=== PATIENT | female | born 1940 | race Caucasian/White ===

== ENCOUNTER 2022-09-27 15:39 | Inpatient (IN) | payer OTHER ==
[2022-09-27] MEDS ORDERED: Sodium Chloride 0.9% 10 ML Syringe FLUSH PRN (16:04)
[2022-09-27] MEDS ORDERED: Ketorolac 15 MG/ML SDV IVPUSH ONE (16:05)
[2022-09-27] MEDS ORDERED: Sodium Chloride 0.9% 1,000 ML IV SCH (16:15)
[2022-09-27 16:41] LABS: CORONAVIRUS COVID-19 NAA NEGATIVE (NEGATIVE)
[2022-09-27] MEDS ORDERED: cefTRIAXone 2 GM in Sodium Chloride 0.9% 100 ML IV ONE (18:46)
[2022-09-27] MEDS ORDERED: HYDROmorphone 0.5 MG/0.5 ML Syringe IVPUSH ONE (18:58)
[2022-09-27] MEDS ORDERED: ACETAMINOPHEN PO SCH (21:08)
[2022-09-27] MEDS ORDERED: OXYCODONE HCL PO SCH (21:08)
[2022-09-27] MEDS ORDERED: oxyCODONE 5 MG Tab PO ONE (21:39)
[2022-09-27] MEDS ORDERED: Acetaminophen/oxyCODONE 325-5 MG Tab PO ONE (21:40)
[2022-09-27] MEDS: Sodium Chloride 0.9% 1,000 ML IV SCH (22:46)
[2022-09-28] MEDS: Acetaminophen 325 MG Tab PO PRN ×2 (04:07→23:58)
[2022-09-28] MEDS ORDERED: Docusate Sodium 100 MG Cap PO PRN (06:49)
[2022-09-28] MEDS ORDERED: traMADol 50 MG Tab ONE (08:29)
[2022-09-28] MEDS: Oxybutynin 5 MG Tab.ER PO SCH (09:12)
[2022-09-28] MEDS: Hydroxychloroquine 200 MG Tab PO SCH ×2 (09:13→20:35)
[2022-09-28] MEDS: DULoxetine 20 MG Cap PO SCH (09:14)
[2022-09-28] MEDS: Acetaminophen/oxyCODONE 325-5 MG Tab PO SCH ×3 (09:14→20:32)
[2022-09-28] MEDS: Cholecalciferol (Vitamin D3) 25 MCG Tab PO SCH (09:15)
[2022-09-28] MEDS: oxyCODONE 5 MG Tab PO SCH ×3 (09:16→20:31)
[2022-09-28] MEDS: Pantoprazole 40 MG Tab.CR PO SCH (09:16)
[2022-09-28] MEDS: Sertraline 50 MG Tab PO SCH (09:17)
[2022-09-28] MEDS: Lisinopril 20 MG Tab PO SCH (09:17)
[2022-09-28] MEDS: Carvedilol 6.25 MG Tab PO SCH ×2 (09:18→20:33)
[2022-09-28] MEDS: Sodium Chloride 0.9% 1,000 ML IV SCH ×2 (09:50→23:58)
[2022-09-28] MEDS ORDERED: ULTRAM PO SCH (13:00)
[2022-09-28] MEDS: Enoxaparin 30 MG/0.3 ML Syringe SUBCUT SCH (13:28)
[2022-09-28] MEDS: TRAMADOL 200 MG PO SCH (13:28)
[2022-09-28] MEDS: cefTRIAXone 2 GM in Sodium Chloride 0.9% 100 ML IV SCH (17:52)
[2022-09-28] MEDS: Tamsulosin 0.4 MG Cap.ER PO SCH (20:34)
[2022-09-28] MEDS: Aspirin 81 MG Tab.EC PO SCH (20:34)
[2022-09-28] MEDS: lamoTRIgine 100 MG Tab PO SCH (20:34)
[2022-09-29] MEDS: Levothyroxine 100 MCG Tab PO SCH (06:04)
[2022-09-29] MEDS: Pantoprazole 40 MG Tab.CR PO SCH (06:05)
[2022-09-29] MEDS: Carvedilol 6.25 MG Tab PO SCH ×2 (08:17→20:28)
[2022-09-29] MEDS: Cholecalciferol (Vitamin D3) 25 MCG Tab PO SCH (08:17)
[2022-09-29] MEDS: Oxybutynin 5 MG Tab.ER PO SCH (08:17)
[2022-09-29] MEDS: Hydroxychloroquine 200 MG Tab PO SCH ×2 (08:17→20:26)
[2022-09-29] MEDS: Acetaminophen/oxyCODONE 325-5 MG Tab PO SCH ×3 (08:18→20:27)
[2022-09-29] MEDS: Sertraline 50 MG Tab PO SCH (08:18)
[2022-09-29] MEDS: DULoxetine 20 MG Cap PO SCH (08:18)
[2022-09-29] MEDS: Lisinopril 20 MG Tab PO SCH (08:18)
[2022-09-29] MEDS: oxyCODONE 5 MG Tab PO SCH ×3 (08:19→20:26)
[2022-09-29] MEDS ORDERED: Magnesium Sulfate/Water 2 GM in Premix Bag 1 BAG IV ONE (10:25)
[2022-09-29] MEDS: Potassium Chloride 20 MEQ Tab.ER PO SCH ×2 (10:37→20:26)
[2022-09-29] MEDS: TRAMADOL 200 MG PO SCH (12:09)
[2022-09-29] MEDS: Enoxaparin 30 MG/0.3 ML Syringe SUBCUT SCH (12:09)
[2022-09-29] MEDS: cefTRIAXone 2 GM in Sodium Chloride 0.9% 100 ML IV SCH (17:21)
[2022-09-29] MEDS: lamoTRIgine 100 MG Tab PO SCH (20:26)
[2022-09-29] MEDS: Aspirin 81 MG Tab.EC PO SCH (20:27)
[2022-09-29] MEDS: Tamsulosin 0.4 MG Cap.ER PO SCH (20:27)
[2022-09-30] MEDS: Levothyroxine 100 MCG Tab PO SCH (05:18)
[2022-09-30] MEDS: Pantoprazole 40 MG Tab.CR PO SCH (05:18)
[2022-09-30] MEDS ORDERED: Magnesium Sulfate/Water 4 GM in Premix Bag 1 BAG IV ONE (07:48)
[2022-09-30] MEDS: DULoxetine 20 MG Cap PO SCH (09:12)
[2022-09-30] MEDS: Cholecalciferol (Vitamin D3) 25 MCG Tab PO SCH (09:12)
[2022-09-30] MEDS: Hydroxychloroquine 200 MG Tab PO SCH (09:13)
[2022-09-30] MEDS: oxyCODONE 5 MG Tab PO SCH (09:13)
[2022-09-30] MEDS: Lisinopril 20 MG Tab PO SCH (09:13)
[2022-09-30] MEDS: Oxybutynin 5 MG Tab.ER PO SCH (09:13)
[2022-09-30] MEDS: Sertraline 50 MG Tab PO SCH (09:13)
[2022-09-30] MEDS: Carvedilol 6.25 MG Tab PO SCH (09:14)
[2022-09-30] MEDS: Acetaminophen/oxyCODONE 325-5 MG Tab PO SCH (09:14)
[2022-09-30] MEDS ORDERED: Gabapentin 100 MG Cap PO ONE (10:00)
[2022-09-30] MEDS: Enoxaparin 30 MG/0.3 ML Syringe SUBCUT SCH (12:49)
[2022-09-30] MEDS: TRAMADOL 200 MG PO SCH (13:31)
[2022-09-30] MEDS ORDERED: Gabapentin 100 MG Cap PO SCH (21:00)
== END 2022-09-30 16:20 | disposition home or self-care (01) | DRG 689 ==
LOC: JD.ED 15:39 → JD.MS 19:33
PROVIDERS: ADMIT Internal Medicine; ATTEND Pediatrics
DX: N30.01 Acute cystitis with hematuria (principal); J18.9 Pneumonia, unspecified organism; N17.9 Acute kidney failure, unspecified; E87.6 Hypokalemia; E83.42 Hypomagnesemia; E86.0 Dehydration; R21 Rash and other nonspecific skin eruption; I10 Essential (primary) hypertension; G89.29 Other chronic pain; M54.9 Dorsalgia, unspecified; Z96.659 Presence of unspecified artificial knee joint; Z20.822 Contact with and (suspected) exposure to COVID-19; M06.9 Rheumatoid arthritis, unspecified; E03.9 Hypothyroidism, unspecified; B96.20 Unspecified Escherichia coli [E. coli] as the cause of diseases classified elsewhere; Z79.82 Long term (current) use of aspirin; Z79.899 Other long term (current) drug therapy; Z86.73 Personal history of transient ischemic attack (TIA), and cerebral infarction without residual deficits; Z90.49 Acquired absence of other specified parts of digestive tract; Z87.01 Personal history of pneumonia (recurrent); Z79.890 Hormone replacement therapy; Z98.49 Cataract extraction status, unspecified eye; Z90.710 Acquired absence of both cervix and uterus; Z98.1 Arthrodesis status
CPT/HCPCS: 0241U; 36415; 71045; 71045-26; 80048; 80053; 81001; 83605; 83735; 85025; 86140; 87040; 87086; 87088; 87186; 96361; 96365; 96375; 97116-GP; 97162-GP; 97166-GO; 97530-GO; 99285-25; A9270-GY; J0696; J1170; J1650; J1885; J3475; J7030

== ENCOUNTER 2024-01-27 14:38 | Inpatient (IN) | payer MEDICARE ==
[2024-01-27] MEDS ORDERED: Acetaminophen 325 MG Tab PO PRN (15:16)
[2024-01-27] MEDS ORDERED: Ondansetron 4 MG Tab.DIS PO PRN (15:16)
[2024-01-27] MEDS: Sodium Chloride 0.9% 1,000 ML IV SCH (15:20)
[2024-01-27 16:39] LABS: CORONAVIRUS COVID-19 NAA NEGATIVE (NEGATIVE); INFLUENZA A NAA NEGATIVE (NEGATIVE); RESPIRATORY SYNCYTIAL VIR NAA NEGATIVE (NEGATIVE)
[2024-01-27] MEDS: cefTRIAXone 2 GM in Sodium Chloride 0.9% 100 ML IV SCH (16:42)
[2024-01-27] MEDS: oxyCODONE 5 MG Tab PO PRN (17:12)
[2024-01-27 17:19] LABS: LACTIC ACID 2.4 mmol/L (0.4-2.0)
[2024-01-27] MEDS: Morphine 2 MG/ML SYRINGE IVPUSH ONE (18:16)
[2024-01-27] MEDS: Morphine 2 MG/ML SYRINGE ONE (18:16)
[2024-01-27] MEDS: lamoTRIgine 100 MG Tab PO SCH (21:12)
[2024-01-27] MEDS: Hydroxychloroquine 200 MG Tab PO SCH (21:13)
[2024-01-27] MEDS: Tamsulosin 0.4 MG Cap.ER PO SCH (21:14)
[2024-01-27] MEDS: Aspirin 81 MG Tab.EC PO SCH (21:14)
[2024-01-27] MEDS: Temazepam 7.5 MG Cap PO PRN (21:14)
[2024-01-27] MEDS: Carvedilol 6.25 MG Tab PO SCH (21:17)
[2024-01-27] MEDS: Heparin Sodium 5,000 Units/ML Vial SUBCUT SCH (21:26)
[2024-01-28 04:45] LABS: BASOPHILS PERCENT AUTO 0.2 % (0.0-1.0); EOSINOPHILS PERCENT AUTO 0.1 % (0.0-6.0); HEMATOCRIT 36.2 % (37.0-47.0); HEMOGLOBIN 11.7 gm/dl (12.0-16.0); IMMATURE GRAN ABSOLUTE AUTO 0.08 K/mm3 (0.00-0.05); IMMATURE GRAN PERCENT AUTO 0.6 % (0.0-0.4); LYMPHOCYTES ABSOLUTE AUTO 0.6 K/mm3 (1.0-4.8); LYMPHOCYTES PERCENT AUTO 4.5 % (24.0-44.0); MEAN CORPUSCULAR HEMOGLOBIN 30.7 pg (28.0-32.0); MEAN CORPUSCULAR HGB CONC 32.3 g/dl (32.0-36.0); MEAN PLATELET VOLUME 10.7 fl (9.4-12.3); MONOCYTES ABSOLUTE AUTO 0.8 K/mm3 (0.0-0.8); MONOCYTES PERCENT AUTO 5.3 % (0.0-8.0); NEUTROPHILS ABSOLUTE AUTO 12.7 K/mm3 (1.8-7.7); NEUTROPHILS PERCENT AUTO 89.3 % (41.0-71.0); PLATELET COUNT,PLT 216 K/mm3 (150-400); RED BLOOD CELL COUNT 3.81 M/mm3 (4.10-5.30); WHITE BLOOD CELL COUNT,WBC 14.19 K/mm3 (3.9-11.3)
[2024-01-28 05:18] LABS: A/G RATIO 0.9 (1-2); ALBUMIN 3.1 g/dl (3.4-5.0); ANION GAP 17.5 (5-15); BILIRUBIN TOTAL 0.7 mg/dL (0.2-1.0); BUN/CREATININE RATIO 32.5 (14-18); CREATININE 0.8 mg/dL (0.55-1.02); EST CRCL DRUG DOSING (CG) 41.4 mL/min; POTASSIUM,K 3.5 mEq/L (3.5-5.1); PROTEIN TOTAL,TP 6.7 g/dl (6.4-8.2)
[2024-01-28] MEDS: Pantoprazole 40 MG Tab.CR PO SCH (06:14)
[2024-01-28] MEDS: Levothyroxine 100 MCG Tab PO SCH (06:14)
[2024-01-28] MEDS: Sertraline 50 MG Tab PO SCH (08:01)
[2024-01-28] MEDS: DULoxetine 20 MG Cap PO SCH (08:01)
[2024-01-28] MEDS: Oxybutynin 5 MG Tab.ER PO SCH (08:01)
[2024-01-28] MEDS: Magnesium Oxide 400 MG Tab PO SCH (08:02)
[2024-01-28] MEDS: Cholecalciferol (Vitamin D3) 25 MCG Tab PO SCH (08:02)
[2024-01-28] MEDS: Lisinopril 20 MG Tab PO SCH (08:02)
[2024-01-28] MEDS: traMADol 50 MG Tab PO SCH (09:01)
[2024-01-28] MEDS: Sodium Chloride 0.9% 1,000 ML IV SCH (10:37)
[2024-01-28] MEDS ORDERED: Promethazine 6.25 MG/5 ML Liquid 10 ML UD Cup PO PRN (10:54)
[2024-01-28] MEDS: Benzocaine/Cetylpyridinium/Menthol Lozenge MUCMEM PRN (11:13)
[2024-01-28] MEDS ORDERED: Codeine/guaiFENesin 10-100 MG/5 ML Syrup 5 ML Syringe PO PRN (11:17)
[2024-01-28] MEDS: Albuterol/Ipratropium 3.0-0.5 MG/3 ML Neb Soln NEB PRN (11:44)
[2024-01-29 06:05] LABS: BASOPHILS ABSOLUTE AUTO 0.1 K/mm3 (0.0-0.2); BASOPHILS PERCENT AUTO 0.4 % (0.0-1.0); EOSINOPHILS PERCENT AUTO 0.1 % (0.0-6.0); HEMATOCRIT 36.8 % (37.0-47.0); HEMOGLOBIN 12.1 gm/dl (12.0-16.0); IMMATURE GRAN ABSOLUTE AUTO 0.07 K/mm3 (0.00-0.05); IMMATURE GRAN PERCENT AUTO 0.4 % (0.0-0.4); LYMPHOCYTES ABSOLUTE AUTO 1.4 K/mm3 (1.0-4.8); LYMPHOCYTES PERCENT AUTO 8.1 % (24.0-44.0); MEAN CORPUSCULAR HEMOGLOBIN 31.5 pg (28.0-32.0); MEAN CORPUSCULAR HGB CONC 32.9 g/dl (32.0-36.0); MEAN CORPUSCULAR VOLUME 95.8 fl (83.0-99.0); MEAN PLATELET VOLUME 10.4 fl (9.4-12.3); MONOCYTES ABSOLUTE AUTO 1.1 K/mm3 (0.0-0.8); MONOCYTES PERCENT AUTO 6.4 % (0.0-8.0); NEUTROPHILS ABSOLUTE AUTO 14.2 K/mm3 (1.8-7.7); NEUTROPHILS PERCENT AUTO 84.6 % (41.0-71.0); PLATELET COUNT,PLT 246 K/mm3 (150-400); RED BLOOD CELL COUNT 3.84 M/mm3 (4.10-5.30); WHITE BLOOD CELL COUNT,WBC 16.81 K/mm3 (3.9-11.3)
[2024-01-29 06:27] LABS: A/G RATIO 0.8 (1-2); ANION GAP 16.8 (5-15); BILIRUBIN TOTAL 0.6 mg/dL (0.2-1.0); BUN/CREATININE RATIO 27.8 (14-18); CALCIUM 8.7 mg/dL (8.5-10.1); CREATININE 0.9 mg/dL (0.55-1.02); EST CRCL DRUG DOSING (CG) 36.8 mL/min; MAGNESIUM 1.7 mg/dL (1.8-2.4); POTASSIUM,K 3.8 mEq/L (3.5-5.1); PROTEIN TOTAL,TP 6.7 g/dl (6.4-8.2)
[2024-01-29] MEDS: Docusate Sodium 100 MG Cap PO SCH (09:21)
[2024-01-30 05:53] LABS: BUN/CREATININE RATIO 36.7 (14-18); CALCIUM 9.1 mg/dL (8.5-10.1); CREATININE 0.9 mg/dL (0.55-1.02); EST CRCL DRUG DOSING (CG) 36.8 mL/min
[2024-01-30 05:58] LABS: BASOPHILS ABSOLUTE AUTO 0.1 K/mm3 (0.0-0.2); BASOPHILS PERCENT AUTO 0.4 % (0.0-1.0); EOSINOPHILS PERCENT AUTO 0.1 % (0.0-6.0); HEMATOCRIT 36.2 % (37.0-47.0); HEMOGLOBIN 11.8 gm/dl (12.0-16.0); IMMATURE GRAN ABSOLUTE AUTO 0.21 K/mm3 (0.00-0.05); IMMATURE GRAN PERCENT AUTO 1.1 % (0.0-0.4); LYMPHOCYTES ABSOLUTE AUTO 0.7 K/mm3 (1.0-4.8); LYMPHOCYTES PERCENT AUTO 3.7 % (24.0-44.0); MEAN CORPUSCULAR HEMOGLOBIN 30.9 pg (28.0-32.0); MEAN CORPUSCULAR HGB CONC 32.6 g/dl (32.0-36.0); MEAN CORPUSCULAR VOLUME 94.8 fl (83.0-99.0); MEAN PLATELET VOLUME 10.3 fl (9.4-12.3); MONOCYTES PERCENT AUTO 5.2 % (0.0-8.0); NEUTROPHILS ABSOLUTE AUTO 17.8 K/mm3 (1.8-7.7); NEUTROPHILS PERCENT AUTO 89.5 % (41.0-71.0); PLATELET COUNT,PLT 264 K/mm3 (150-400); RED BLOOD CELL COUNT 3.82 M/mm3 (4.10-5.30); WHITE BLOOD CELL COUNT,WBC 19.88 K/mm3 (3.9-11.3)
[2024-01-31 05:37] LABS: BASOPHILS ABSOLUTE AUTO 0.1 K/mm3 (0.0-0.2); BASOPHILS PERCENT AUTO 0.3 % (0.0-1.0); EOSINOPHILS PERCENT AUTO 0.1 % (0.0-6.0); HEMATOCRIT 39.4 % (37.0-47.0); HEMOGLOBIN 12.7 gm/dl (12.0-16.0); IMMATURE GRAN ABSOLUTE AUTO 0.32 K/mm3 (0.00-0.05); IMMATURE GRAN PERCENT AUTO 1.5 % (0.0-0.4); LYMPHOCYTES ABSOLUTE AUTO 0.8 K/mm3 (1.0-4.8); LYMPHOCYTES PERCENT AUTO 3.9 % (24.0-44.0); MEAN CORPUSCULAR HEMOGLOBIN 30.7 pg (28.0-32.0); MEAN CORPUSCULAR HGB CONC 32.2 g/dl (32.0-36.0); MEAN CORPUSCULAR VOLUME 95.2 fl (83.0-99.0); MEAN PLATELET VOLUME 10.2 fl (9.4-12.3); MONOCYTES PERCENT AUTO 4.7 % (0.0-8.0); NEUTROPHILS PERCENT AUTO 89.5 % (41.0-71.0); NRBC ABSOLUTE 0.02 (0.00-0.02); NRBC PERCENT 0.1 % (0.0-0.2); PLATELET COUNT,PLT 324 K/mm3 (150-400); RED BLOOD CELL COUNT 4.14 M/mm3 (4.10-5.30); WHITE BLOOD CELL COUNT,WBC 21.24 K/mm3 (3.9-11.3)
[2024-01-31 05:58] LABS: A/G RATIO 0.8 (1-2); BILIRUBIN TOTAL 0.6 mg/dL (0.2-1.0); CALCIUM 9.6 mg/dL (8.5-10.1); EST CRCL DRUG DOSING (CG) 33.12 mL/min; POTASSIUM,K 4.6 mEq/L (3.5-5.1); PROTEIN TOTAL,TP 6.9 g/dl (6.4-8.2)
[2024-01-31] MEDS: Scopalamine 1mg/3day Transdermal Patch TOP ONE (08:50)
[2024-01-31 14:16] LABS: ANION GAP 20.6 (5-15)
[2024-02-01 05:36] LABS: BASOPHILS ABSOLUTE AUTO 0.1 K/mm3 (0.0-0.2); BASOPHILS PERCENT AUTO 0.5 % (0.0-1.0); HEMATOCRIT 38.2 % (37.0-47.0); HEMOGLOBIN 12.5 gm/dl (12.0-16.0); IMMATURE GRAN ABSOLUTE AUTO 0.88 K/mm3 (0.00-0.05); IMMATURE GRAN PERCENT AUTO 3.6 % (0.0-0.4); LYMPHOCYTES ABSOLUTE AUTO 0.6 K/mm3 (1.0-4.8); LYMPHOCYTES PERCENT AUTO 2.6 % (24.0-44.0); MEAN CORPUSCULAR HEMOGLOBIN 30.6 pg (28.0-32.0); MEAN CORPUSCULAR HGB CONC 32.7 g/dl (32.0-36.0); MEAN CORPUSCULAR VOLUME 93.6 fl (83.0-99.0); MEAN PLATELET VOLUME 10.4 fl (9.4-12.3); MONOCYTES ABSOLUTE AUTO 0.6 K/mm3 (0.0-0.8); MONOCYTES PERCENT AUTO 2.5 % (0.0-8.0); NEUTROPHILS PERCENT AUTO 90.8 % (41.0-71.0); NRBC ABSOLUTE 0.28 (0.00-0.02); NRBC PERCENT 1.2 % (0.0-0.2); RED BLOOD CELL COUNT 4.08 M/mm3 (4.10-5.30)
[2024-02-01 05:43] LABS: PLATELET COUNT,PLT 212 K/mm3 (150-400)
[2024-02-01 06:19] LABS: SLIDE REVIEW ABNORMAL SMEAR
[2024-02-01 06:37] LABS: BASE EXCESS ARTERIAL -4.4 (-2-2.0); PCO2 ARTERIAL 36.5 mmHg (35.0-45.0)
[2024-02-01] MEDS: Furosemide 20 MG/2 ML VIAL IVPUSH ONE (06:44)
[2024-02-01] MEDS: Piperacillin/Tazobactam 4.5 GM in Sodium Chloride 0.9% 100 ML IV ONE (06:46)
[2024-02-01] MEDS: Iopamidol 755 Mg/ML 100 ML Bottle IVPUSH ONE (08:59)
[2024-02-01] MEDS: Sodium Chloride 0.9% 100 ML IV SCH (09:00)
[2024-02-01] MEDS: Sodium Chloride 0.9% 10 ML Syringe FLUSH PRN (09:00)
[2024-02-01 10:16] LABS: A/G RATIO 0.8 (1-2); ALBUMIN 2.7 g/dl (3.4-5.0); ANION GAP 16.4 (5-15); BILIRUBIN TOTAL 0.6 mg/dL (0.2-1.0); BUN/CREATININE RATIO 39.4 (14-18); CALCIUM 8.7 mg/dL (8.5-10.1); CREATININE 1.7 mg/dL (0.55-1.02); EST CRCL DRUG DOSING (CG) 19.48 mL/min; POTASSIUM,K 4.4 mEq/L (3.5-5.1); PROTEIN TOTAL,TP 6.1 g/dl (6.4-8.2)
[2024-02-01 10:27] LABS: LACTIC ACID 2.3 mmol/L (0.4-2.0)
[2024-02-01] MEDS ORDERED: Piperacillin/Tazobactam 4.5 GM in Sodium Chloride 0.9% 100 ML IV SCH (10:30)
[2024-02-01] MEDS: Piperacillin/Tazobactam 4.5 GM in Sodium Chloride 0.9% 100 ML IV SCH (14:55)
[2024-02-02] MEDS: Acetaminophen 650 MG Supp ONE (04:38)
[2024-02-02] MEDS: Acetaminophen 650 MG Supp RECTAL PRN (04:38)
[2024-02-02 05:08] LABS: HEMATOCRIT 39.6 % (37.0-47.0); MEAN CORPUSCULAR HEMOGLOBIN 31.2 pg (28.0-32.0); MEAN CORPUSCULAR HGB CONC 32.8 g/dl (32.0-36.0); MEAN PLATELET VOLUME 10.5 fl (9.4-12.3); NRBC ABSOLUTE 0.16 (0.00-0.02); NRBC PERCENT 0.5 % (0.0-0.2); PLATELET COUNT,PLT 158 K/mm3 (150-400); RED BLOOD CELL COUNT 4.17 M/mm3 (4.10-5.30); WHITE BLOOD CELL COUNT,WBC 34.05 K/mm3 (3.9-11.3)
[2024-02-02 05:40] LABS: A/G RATIO 0.8 (1-2); ALBUMIN 2.7 g/dl (3.4-5.0); ANION GAP 16.7 (5-15); BILIRUBIN TOTAL 0.9 mg/dL (0.2-1.0); BUN/CREATININE RATIO 38.8 (14-18); CALCIUM 8.6 mg/dL (8.5-10.1); CREATININE 1.7 mg/dL (0.55-1.02); EST CRCL DRUG DOSING (CG) 19.48 mL/min; POTASSIUM,K 3.7 mEq/L (3.5-5.1); PROTEIN TOTAL,TP 6.2 g/dl (6.4-8.2)
[2024-02-02] MEDS: Doxycycline 100 MG in Sodium Chloride 0.9% 100 ML IV SCH (11:57)
[2024-02-02] MEDS: Sodium Chloride 0.9% 500 ML ONE (11:59)
[2024-02-02] MEDS: Sodium Chloride 0.9% 500 ML IV ONE (16:02)
[2024-02-02] MEDS: LORazepam 2 MG/ML SDV IVPUSH ONE (16:06)
== END 2024-02-02 15:05 | disposition expired | DRG 871 ==
LOC: JD.MS 14:38
PROVIDERS: ADMIT Internal Medicine; ATTEND Internal Medicine
PROC: 3E03329 Introduction of Other Anti-infective into Peripheral Vein, Percutaneous Approach (ICD-10-PCS; 2024-01-27)
PROC: 4A033R1 Measurement of Arterial Saturation, Peripheral, Percutaneous Approach (ICD-10-PCS; 2024-02-01)
PROC: 5A0935A Assistance with Respiratory Ventilation, Less than 24 Consecutive Hours, High Flow/Velocity Cannula (ICD-10-PCS; 2024-02-01)
PROC: 5A09357 Assistance with Respiratory Ventilation, Less than 24 Consecutive Hours, Continuous Positive Airway Pressure (ICD-10-PCS; principal; 2024-02-02)
DX: A41.9 Sepsis, unspecified organism (principal); G93.41 Metabolic encephalopathy; J15.9 Unspecified bacterial pneumonia; J80 Acute respiratory distress syndrome; K72.00 Acute and subacute hepatic failure without coma; N17.9 Acute kidney failure, unspecified; G93.49 Other encephalopathy; J81.1 Chronic pulmonary edema; R65.20 Severe sepsis without septic shock; Z66 Do not resuscitate; I10 Essential (primary) hypertension; F32.A Depression, unspecified; E03.9 Hypothyroidism, unspecified; M06.9 Rheumatoid arthritis, unspecified; M54.9 Dorsalgia, unspecified; Z51.5 Encounter for palliative care; E87.70 Fluid overload, unspecified; G89.29 Other chronic pain; Z96.659 Presence of unspecified artificial knee joint; E87.6 Hypokalemia; E83.42 Hypomagnesemia; I35.8 Other nonrheumatic aortic valve disorders; Z79.82 Long term (current) use of aspirin; Z79.899 Other long term (current) drug therapy; Z86.73 Personal history of transient ischemic attack (TIA), and cerebral infarction without residual deficits; Z98.49 Cataract extraction status, unspecified eye; Z90.49 Acquired absence of other specified parts of digestive tract; Z90.710 Acquired absence of both cervix and uterus; Z98.1 Arthrodesis status
CPT/HCPCS: 0241U; 31720; 36415; 36600; 70450; 70450-26; 70496; 70496-26; 70498; 70498-26; 71045; 71045-26; 76705; 76705-26; 80048; 80053; 82140; 82803; 83605; 83735; 85025; 85027; 87040; 93005; 93010; 94640; 94660; 94667; 94668; 94761; 97110-GP; 97161-GP; 99223; 99232; 99233; A9270-GY; J0696; J1644; J1940; J2270; J2543; J3490; J7030; J7040; J7620-GY; Q9967